=== PATIENT | male | born 1945 | race Caucasian/White ===

== ENCOUNTER 2016-12-15 11:07 | Emergency (ER) | payer MEDICARE, OTHER ==
[2013-04-24 07:56] VITALS: BMI 46.0
[~2016-12-15 11:07] MED LIST: ASPIRIN 81 MG E81 MG PO; GLIMEPIRIDE1 MG PO; KOMBIGLYZE XR1 EACH PO; LAMISIL250 MG PO; LOTENSIN20 MG PO; NEURONTIN 100100 MG PO; NORVASC10 MG PO; PLAVIX75 MG PO; PRILOSEC20 MG PO; PRISTIQ100 MG PO
[2016-12-15 12:13] LABS: BASOPHILS 0.7 % (0-2); EOSINOPHILS 3.7 % (0-7); HEMATOCRIT 50.8 % (42.0-54.0); HEMOGLOBIN 16.9 g/dL (13.5-17.5); IMMATURE GRANULOCYTES 0.5 % (0-5); LYMPHOCYTES 11.5 % (15-50); MCH 29.8 pg (26.0-34.0); MCHC 33.3 g/dL (31.0-37.0); MCV 89.4 fL (80.0-100.0); MEAN PLATELET VOLUME 9.2 fL (7.4-10.4); MONOCYTES 7.4 % (2-11); NEUTROPHILS 76.2 % (40-80); PLATELET COUNT 295 10x3/uL (130-400); RBC 5.68 10x6/uL (4.20-6.10); RDW 14.5 % (11.5-14.5); WBC 10.4 10x3/uL (4.8-10.8)
[2016-12-15 12:37] LABS: ALBUMIN 3.1 g/dL (3.4-5.0); ANION GAP 13.3 mmol/L (8-16); BILIRUBIN - TOTAL 0.5 mg/dL (0.2-1.3); CALCIUM 9.1 mg/dL (8.5-10.1); CARBON DIOXIDE 27.7 mmol/L (21.0-32.0); CREATININE - SERUM 1.2 mg/dL (0.6-1.3); PROTEIN - SERUM 7.5 g/dL (6.4-8.2)
[2016-12-15 13:00] LABS: APPEARANCE CLEAR (CLEAR); BILIRUBIN NEGATIVE (NEGATIVE); COLOR YELLOW (YELLOW); GLUCOSE 1000 mg/dL (NEGATIVE); KETONE NEGATIVE (NEGATIVE); LEUKOCYTE ESTERASE NEGATIVE (NEGATIVE); NITRITE NEGATIVE (NEGATIVE); PROTEIN NEGATIVE (NEGATIVE); SPECIFIC GRAVITY 1.015 (1.005-1.020); UROBILINOGEN NORMAL (NORMAL)
== END 2016-12-15 15:25 | disposition home or self-care (01) ==
LOC: D.ER 11:07
PROVIDERS: Family Medicine; Nurse Practitioner Family
DX: M54.5 Low back pain (principal); M62.838 Other muscle spasm; S39.012A Strain of muscle, fascia and tendon of lower back, initial encounter; X58.XXXA Exposure to other specified factors, initial encounter; Y93.89 Activity, other specified; Y92.012 Bathroom of single-family (private) house as the place of occurrence of the external cause; I10 Essential (primary) hypertension; E11.9 Type 2 diabetes mellitus without complications; E78.5 Hyperlipidemia, unspecified; Z85.46 Personal history of malignant neoplasm of prostate; F17.200 Nicotine dependence, unspecified, uncomplicated

== ENCOUNTER → 2017-10-31 07:25 | Outpatient (CLI) | payer MEDICARE, OTHER ==
[2013-04-24 07:56] VITALS: BMI 46.0
== END | disposition home or self-care (01) ==
LOC: D.RAD 07:25
DX: R19.4 Change in bowel habit (principal); R93.3 Abnormal findings on diagnostic imaging of other parts of digestive tract

== ENCOUNTER 2018-07-06 08:37 | Emergency (ER) | payer MEDICARE, OTHER ==
[~2018-07-06] VITALS: Ht 177.8 cm; Wt 129.5 kg
[2018-07-06 08:42] VITALS: Ht 177.8 cm; Wt 129.5 kg
[2018-07-06] MEDS ORDERED: KOMBIGLYZE XR1 EAC1 PO (08:47)
[2018-07-06] MEDS ORDERED: JARDIANCE25 MG PO (08:48)
[2018-07-06] MEDS ORDERED: BETAPACE 80 MG80 MG PO (08:48)
[2018-07-06] MEDS ORDERED: ELIQUIS5 MG PO (08:48)
[2018-07-06] MEDS ORDERED: NORCO 7.5/325 T1 TA1 PO (09:50)
[2018-07-06] MEDS ORDERED: NAPROXEN375 M1 PO (09:50)
[2018-07-06 10:11] VITALS: BP 138/68
== END 2018-07-06 10:11 | disposition home or self-care (01) ==
LOC: D.ER 08:37
DX: M54.6 Pain in thoracic spine (principal); E66.01 Morbid (severe) obesity due to excess calories; E11.9 Type 2 diabetes mellitus without complications; I10 Essential (primary) hypertension; I25.10 Atherosclerotic heart disease of native coronary artery without angina pectoris; I73.9 Peripheral vascular disease, unspecified; Z85.46 Personal history of malignant neoplasm of prostate

== ENCOUNTER → 2018-07-21 12:47 | Outpatient (CLI) | payer MEDICARE, OTHER ==
[2018-07-06 08:42] VITALS: BMI 40.9
[~2018-07-21 12:47] MED LIST changes: +BETAPACE 80 MG80 MG PO; +ELIQUIS5 MG PO; +JARDIANCE25 MG PO; +KOMBIGLYZE XR1 EAC1 PO; +NAPROXEN375 M1 PO; +NORCO 7.5/325 T1 TA1 PO
== END | disposition home or self-care (01) ==
LOC: D.MRI 12:47
DX: M54.5 Low back pain (principal)

== ENCOUNTER → 2021-02-02 10:40 | Outpatient (CLI) | payer MEDICARE, OTHER ==
[2018-07-06 08:42] VITALS: BMI 40.9
== END | disposition home or self-care (01) ==
LOC: D.HCCECHO 10:40
PROVIDERS: ATTEND Internal Medicine Cardiovascular Disease
DX: I34.0 Nonrheumatic mitral (valve) insufficiency (principal)